=== PATIENT | male | born 1945 | race Caucasian/White ===

== ENCOUNTER → 2018-06-16 | Outpatient (CLI) | payer MEDICARE ==
[~2018-06-16] MED LIST: ASPI-435 PO; ROSU5TAB PO
--- NOTE | 2018-06-16 13:57 | DIAGNOSTIC IMAGING REPORT ---
LEFT CALF ULTRASOUND CLINICAL HISTORY: LEFT LEG EDEMA, INJURY pain. COMPARISON STUDY: No previous studies for comparison. FINDINGS: Within the proximal lateral calf, there is edema present within the subcutaneous fat. This separates discrete fat lobules which may account for the palpable abnormality. Given history of trauma, this edema may represent areas of organizing hemorrhage. Areas of fat necrosis may also be present. There is no ultrasonographic evidence of an intramuscular hematoma. IMPRESSION: Superficial soft tissue edema/hemorrhage with areas of possible fat necrosis. No ultrasonographic evidence of an intramuscular hematoma. Electronically signed by: Keith Queen M.D. 06/16/2018 1:55 PM Dictated Date/Time: 06/16/2018 1:52 PM
== END | disposition home or self-care (01) ==
LOC: C.ULTR 12:41
PROVIDERS: ATTEND Family Medicine
DX: R60.0 Localized edema (principal); T14.8XXA Other injury of unspecified body region, initial encounter; X58.XXXA Exposure to other specified factors, initial encounter